=== PATIENT | female | born 1975 | race Caucasian/White ===

== ENCOUNTER 2016-10-26 10:59 | Emergency (ER) | payer OTHER ==
[2016-10-26] MEDS ORDERED: NS 1,000 ML IV ONE (11:33)
[2016-10-26] MEDS ORDERED: ZOFRAN IV ONE ×2 (11:34→14:19)
[2016-10-26] MEDS ORDERED: TORADOL IV ONE (11:34)
--- NOTE | 2016-10-26 11:39 | PROVIDER DOCUMENTATION ---
HPI-Abdominal Pain/GI Problem - General Chief Complaint: Flank Pain Stated Complaint: LEFT FLANK PAIN Time Seen by Provider: 10/26/16 11:19 Source: patient, family Allergies/Adverse Reactions: Patient Allergies Allergy/AdvReac Type Severity Reaction Status Date / Time No Known Allergies Allergy Verified 10/26/16 11:44 Home Medications: Alprazolam [Xanax] 1 tab PO BID PRN 10/26/16 Carvedilol [Coreg] 1 tab PO DAILY 10/26/16 Oxycodone HCl/Acetaminophen [Percocet 10-325 mg Tablet] 1 tab PO BID PRN Promethazine [Phenergan] 1 tab PO 2-4XDAY PRN PRN 10/26/16 - History of Present Illness-ABD Abdominal Pain Onset Location: reports: LUQ, LLQ, flank Pain Radiation: reports: no radiation Quality of Pain: reports: cramping, tightness Severity in ED: reports: moderate Onset/Duration: reports: 4-6 hours ago Timing: reports: still present, getting worse Activities at Onset: reports: none Exposure to sick contacts?: No Modifying Factors: improves with: nothing Associated Symptoms: reports: fatigue, nausea, vomiting Last BM: unsure Dark Stools Present?: reports: none noticed Rectal Bleeding: reports: none Rectal Pain: reports: none Emesis Description: reports: clear Bruising or Bleeding Gums?: No Similar Symptoms Previously?: Yes Recently seen or treated by another doctor?: No Review of Systems - Adult - REVIEW OF SYSTEMS - ADULT Constitutional: reports: no symptoms reported Eyes: reports: no symptoms reported Ears, Nose, Mouth & Throat: reports: no symptoms reported Cardiovascular: reports: no symptoms reported Respiratory: reports: no symptoms reported Gastrointestinal: reports: see HPI Genitourinary: reports: no symptoms reported Musculoskeletal: reports: no symptoms reported Integumentary: reports: no symptoms reported Neurological: reports: no symptoms reported Psychiatric: reports: no symptoms reported Endocrine: reports: no symptoms reported Hematologic/Lymphatic: reports: no symptoms reported Allergic/Immunologic: reports: no symptoms reported All Other Systems: Reviewed and Negative Past History - Adult - PAST MEDICAL HISTORY-ADULT Review of Records: reports: Old Records Reviewed, Nursing Assessment Review, Medications Reviewed, Social history reviewed & non-contributory. Major Childhood Illnesses: reports: denies history Cardiovascular: reports: denies history Respiratory: reports: denies history Gastrointestinal: reports: denies history Obstetrical/Gynecological: reports: denies history Genitourinary: reports: denies history Musculoskeletal: reports: denies history Neurological: reports: denies history Endocrine/Immune: reports: denies history Other Conditions: reports: denies history - FAMILY HISTORY Family History: reviewed, not pertinent Physical Exam-General - PHYSICAL EXAM-ADULT Initial Vital Signs Reviewed: Yes - CONSTITUTIONAL General Appearance: appears well, alert, moderate distress - EYES Eyes: PERRL/EOMI, pink conjunctivae - HEAD, EARS, NOSE, MOUTH & THROAT HENMT: normocephalic/atraumatic, moist mucous membranes, normal ENT inspection - NECK Neck: non-tender, full range of motion, normal inspection - RESPIRATORY Respiratory: chest non-tender, lungs clear, normal breath sounds - CARDIOVASCULAR Cardiovascular: normal peripheral pulses, regular rate, rhythm, no edema - GASTROINTESTINAL (ABDOMEN) Abdominal Exam: normal bowel sounds, soft, guarding (left CV Atenderness along with LUQ and LLQ tenderness), tenderness. negative: no organomegaly, abdominal bruit, hernia, mass, hepatomegaly, spleenomegaly, McBurney's point tenderness, Miller's sign, obturator sign - GENITOURINARY Female Genitalia/Pelvic Exam: deferred Rectal Exam: deferred - LYMPHATIC Lymphatic: no adenopathy - MUSCULOSKELETAL Back Exam: normal inspection, no CVA tenderness, no vertebral tenderness Extremity: normal range of motion, non-tender, normal gait - SKIN Integumentary: normal color, normal turgor, warm/dry - NEUROLOGIC Neurologic: grossly normal, no motor/sensory deficits - PSYCHIATRIC Psych/Mental Status: normal mood/affect, normal thought content, normal thought process, oriented x 3 Progress - PLAN OF CARE/RESULTS Progress/Plan/Lab Results: Laboratory Tests 10/26/16 10/26/16 10/26/16 11:35 11:35 11:35 WBC 4.81 RBC 4.12 L Hgb 12.1 Hct 37.9 MCV 92.0 MCH 29.4 MCHC 31.9 L RDW Std Deviation 12.2 Plt Count 210 MPV 10.5 H Immature Gran % (Auto) 0.0 Neut % (Auto) 59.6 Lymph % (Auto) 31.2 [place] % (Auto) 6.9 Eos % (Auto) 1.7 Baso % (Auto) 0.6 Immature Gran # (Auto) 0.00 Neut # (Auto) 2.87 Lymph # (Auto) 1.50 [place] # (Auto) 0.33 Eos # (Auto) 0.08 Baso # (Auto) 0.03 Sodium 139 Potassium 4.0 Chloride 100 Carbon Dioxide 29 Anion Gap 10 BUN 12 Creatinine 0.8 Estimated GFR/1.73 m2 > 60 BUN/Creatinine Ratio 15 Glucose 118 H Calculated Osmolality 278 Calcium 9.3 Total Bilirubin 0.37 AST 19 ALT 17 Alkaline Phosphatase 65 Total Protein 6.8 Albumin 4.5 Globulin 2.3 Albumin/Globulin Ratio 2.0 Amylase 32 Lipase 15 Urine Source CLEAN CATCH Urine Color YELLOW Urine Turbidity HAZY Urine pH 8.0 Ur Specific [place] 1.016 Urine Protein TRACE A Ur Glucose (Stick) NEGATIVE Ur Ketones (Stick) NEGATIVE Urine Blood LARGE A Urine Nitrite NEGATIVE Urine Bilirubin NEGATIVE Urobilinogen Dipstick NORMAL Urine Leukocytes NEGATIVE Urine WBC (Auto) <10 Urine RBC (Auto) TNTC A U Epithel Cells (Auto) <10 Urine Bacteria (Auto) NEGATIVE Orders Category Date Time Status ED: Urine Bedside ORDERED Care 10/26/16 11:35 Inactive Saline Loc DIRECTED Care 10/26/16 11:34 Active NPO Diet 10/26/16 11:[address] ABD/PELVIS W/ IV CONT ONLY [CT] Stat Exams 10/26/16 11:35 Draft AMYLASE [CHEM] Stat Lab 10/26/16 11:35 Completed CBC WITH ELECTRONIC DIFF [HEME] Stat Lab 10/26/16 11:35 Completed COMPREHENSIVE METABOLIC PANEL [CHEM] Stat Lab 10/26/16 11:35 Completed LIPASE [CHEM] Stat Lab 10/26/16 11:35 Completed URINALYSIS W/POSS RFLX CULT [URINALYSIS] Stat Lab 10/26/16 11:35 Completed 0.9% Sodium Chloride Inj [Ns] 1,000 ml Med 10/26/16 11:33 Discontinued IV 999 mls/hr Hydromorphone [Dilaudid] Med 10/26/16 12:42 Discontinued 1 mg IV NOW ONE Hydromorphone [Dilaudid] Med 10/26/16 14:19 Discontinued 1 mg IV NOW ONE Ketorolac [Toradol] Med 10/26/16 11:34 Discontinued 30 mg IV NOW ONE Ondansetron [Zofran] Med 10/26/16 11:34 Discontinued 4 mg IV NOW ONE Ondansetron [Zofran] Med 10/26/16 14:19 Discontinued 4 mg IV NOW ONE Vital Signs Temp Pulse Resp BP Pulse Ox 10/26/16 11:01 97.6 F 76 20 119/68 100 No Known Allergies Allergy (Verified 10/26/16 11:44) Alprazolam [Xanax] 1 tab PO BID PRN 10/26/16 Carvedilol [Coreg] 1 tab PO DAILY 10/26/16 Oxycodone HCl/Acetaminophen [Percocet 10-325 mg Tablet] 1 tab PO BID PRN Promethazine [Phenergan] 1 tab PO 2-4XDAY PRN PRN 10/26/16 Dietary Diet NPO Start MonOct 26 1134 Laboratory 10/26/16 10/26/16 10/26/16 11:35 11:35 11:35 WBC 4.81 RBC 4.12 L Hgb 12.1 Hct 37.9 MCV 92.0 MCH 29.4 MCHC 31.9 L RDW Std Deviation 12.2 Plt Count 210 MPV 10.5 H Immature Gran % (Auto) 0.0 Neut % (Auto) 59.6 Lymph % (Auto) 31.2 [place] % (Auto) 6.9 Eos % (Auto) 1.7 Baso % (Auto) 0.6 Immature Gran # (Auto) 0.00 Neut # (Auto) 2.87 Lymph # (Auto) 1.50 [place] # (Auto) 0.33 Eos # (Auto) 0.08 Baso # (Auto) 0.03 Sodium 139 Potassium 4.0 Chloride 100 Carbon Dioxide 29 Anion Gap 10 BUN 12 Creatinine 0.8 Estimated GFR/1.73 m2 > 60 BUN/Creatinine Ratio 15 Glucose 118 H Calculated Osmolality 278 Calcium 9.3 Total Bilirubin 0.37 AST 19 ALT 17 Alkaline Phosphatase 65 Total Protein 6.8 Albumin 4.5 Globulin 2.3 Albumin/Globulin Ratio 2.0 Amylase 32 Lipase 15 Urine Source CLEAN CATCH Urine Color YELLOW Urine Turbidity HAZY Urine pH 8.0 Ur Specific [place] 1.016 Urine Protein TRACE A Ur Glucose (Stick) NEGATIVE Ur Ketones (Stick) NEGATIVE Urine Blood LARGE A Urine Nitrite NEGATIVE Urine Bilirubin NEGATIVE Urobilinogen Dipstick NORMAL Urine Leukocytes NEGATIVE Urine WBC (Auto) <10 Urine RBC (Auto) TNTC A U Epithel Cells (Auto) <10 Urine Bacteria (Auto) NEGATIVE - CT/MRI 1 CT Study: Abdomen (left 6.5 mm distal ureter stone obstructing with mod hydronephrosis) Departure - Departure Time of Disposition Order: 14:51 DIAGNOSIS: Ureterolithiasis Disposition: ADMITTED INPATIENT 09 Certified Medical Emergency: Emergent Condition: Fair Referrals: Scottie Valero MD [Primary Care Provider] - Sukh Harmon MD [STAFF PHYSICIAN] - - Critical Care Note Comments: Called urology snuff container inspector Dr Harmon who recommended discharge and sent her to his office for further evalaution after 3 rounds of medications pt better with pain
[2016-10-26 11:51] LABS: MANUAL DIFF NEEDED? NO; URINE CULTURE NEEDED? NO; URINE MICRO REVIEW NEEDED? NO; URINE SOURCE CLEAN CATCH
[2016-10-26 11:54] LABS: BILIRUBIN URINE NEGATIVE (NEGATIVE); BLOOD URINE LARGE (NEGATIVE); COLOR YELLOW; GLUCOSE URINE NEGATIVE (NEGATIVE); LEUKOCYTES URINE NEGATIVE (NEGATIVE); NITRITE URINE NEGATIVE (NEGATIVE); PROTEIN URINE TRACE mg/dL (NEGATIVE); SP GRAVITY URINE 1.016; TURBIDITY URINE HAZY (CLEAR); UROBILINOGEN URINE NORMAL (NORMAL)
[2016-10-26 11:55] LABS: UR EPITHELIAL CELLS <10 /HPF (<10); URINE BACTERIA NEGATIVE /HPF; URINE RBC TNTC /HPF (<10); URINE WBC <10 /HPF (<10)
[2016-10-26 12:00] LABS: BASO% 0.6 % (0.0-0.8); EOS# 0.08 X1000 (0.0-0.7); EOS% 1.7 % (0.0-10.0); HEMATOCRIT 37.9 % (37.0-47.0); HEMOGLOBIN 12.1 g/dL (12.0-16.0); LYMPH% 31.2 % (20.5-51.1); MCH 29.4 PG (27-31); MCHC 31.9 g/dL (33-37); MONO# 0.33 X1000 (0.11-0.59); MONO% 6.9 % (1.7-9.3); MPV 10.5 FL (7.4-10.4); NEUT% 59.6 % (42.2-75.2); PLT 210 X1000 (130-400); RBC 4.12 XMIL (4.2-5.4)
[2016-10-26 12:29] LABS: AGAP 10; ALBUMIN 4.5 g/dL (3.5-5.0); ALKALINE PHOSPHATASE 65 U/L (32-104); AMYLASE 32 U/L (20-200); BUN 12 mg/dL (8-22); CALCIUM 9.3 mg/dL (8.8-10.2); CHLORIDE 100 mmol/L (98-107); COSMO 278; GOT 19 U/L (10-30); GPT 17 U/L (10-36); LIPASE 15 U/L (13-60); SODIUM 139 mmol/L (136-145); TCO2 29 mmol/L (25-35); TOTAL BILIRUBIN 0.37 mg/dL (0.20-1.00); TOTAL PROTEIN 6.8 g/dL (6.3-8.3)
[2016-10-26] MEDS ORDERED: DILAUDID IV ONE ×2 (12:42→14:19)
--- NOTE | 2016-10-26 13:59 | Diag Imaging Result Document ---
PROCEDURE NAME: CT ABD/PELVIS W/ IV CONT ONLY - 10/26/2016 CT ABDOMEN AND PELVIS WITH IV CONTRAST: COMPARISON: 10/19/2012. FINDINGS: There is a 6.5 mm obstructing stone in the distal left ureter a couple centimeters proximal to the left UVJ. There is associated mild to moderate left hydroureteronephrosis. The right kidney is unremarkable. The gallbladder is unremarkable. The urinary bladder is only partially distended and is grossly unremarkable otherwise. No definite adnexal mass is appreciated. There is no evidence of bowel obstruction. The remainder of the solid viscera of the abdomen and pelvis and the remainder of the GI tract is essentially unremarkable. IMPRESSION: 6.5 mm obstructing stone in the distal left ureter with associated mild to moderate left hydroureteronephrosis as described.
[2016-10-26 15:28] VITALS: BP 120/71
== END 2016-10-26 15:27 | disposition home or self-care (01) ==
LOC: ED 10:59
DX: N20.1 Calculus of ureter (principal); R10.32 Left lower quadrant pain; R10.12 Left upper quadrant pain; R53.83 Other fatigue; R11.2 Nausea with vomiting, unspecified; R33.9 Retention of urine, unspecified
CPT/HCPCS: 74177; 80053; 81001; 82150; 83690; 85025; 96374; 96375; 96376; J1170; J1885; J2405; J7030; Q9967

== ENCOUNTER 2016-10-26 17:40 | Day surgery (SDC) ==
[2016-10-26] MEDS ORDERED: LR 1,000 ML ONE (17:56)
[2016-10-26] MEDS ORDERED: KEFZOL 1 GM/D5W 50 ML ONE (18:11)
[2016-10-26] MEDS ORDERED: FENTANYL ONE (19:23)
[2016-10-26] MEDS ORDERED: DIPRIVAN 1% ONE (19:23)
[2016-10-26] MEDS ORDERED: MORPHINE ONE (19:35)
[2016-10-26] MEDS ORDERED: PERCOCET-5 ONE (19:36)
[2016-10-26 20:12] VITALS: BP 117/60
--- NOTE | 2016-10-26 22:53 | OPERATIVE NOTE ---
PROCEDURE DATE: 10/26/2016 SURGEON: Sukh Harmon MD PREOPERATIVE DIAGNOSIS: 1. Left distal ureteral stone. 2. Hydronephrosis. 3. Flank pain. PRIMARY PROCEDURES: 1. Cystoscopy, left ureteroscopy. 2. Laser lithotripsy, stone basket extraction. 3. Placement of a 6-Slovenian-24 cm ureteral stent. INDICATIONS: 41-year-old female without previous history of urolithiasis who presented with severe left flank pain. ER obtained a CT scan which showed 6.5 mm stone with significant hydronephrosis. She had several rounds of IV pain medications and had her pain partially controlled. She presented to clinic with worsening pain from the emergency room. Decision was made to take her to surgery. FINDINGS: Obstructing distal ureteral stone, significant mucosal edema, significant hydroureteronephrosis. The stone was sent off for analysis. Adequate stent placement. PROCEDURE IN DETAIL: After obtaining informed consent, patient brought to the operative room. Perioperative antibiotics and laryngeal mask anesthesia were administered. She was placed in dorsal lithotomy position, prepped and draped in sterile fashion. A 21-Slovenian rigid cystoscope was used to gain access to the bladder, which was then examined in systematic fashion. She had no evidence of mucosal lesions, excessive trabeculations, or diverticula noted. We turned attention to the left ureteral orifice which was cannulated with a PTFE wire. It was advanced all the way to renal pelvis. Rigid ureteroscope was advanced alongside of the wire. The stone was visible. There was significant mucosal edema. I advanced the stone further into the mid ureter. A 0 nitinol basket was used to secure the stone. Holmium laser fiber of 365 micron size with energy settings of 0.8 joules and 8 hertz was used to break the stone into small fragments. Those were then extracted. We subsequently sent off 1 of the fragments for analysis. Repeat ureteroscopy revealed no evidence of residual stone fragments. We elected to place ureteral stent given the significant mucosal edema and hydronephrosis. In the standard fashion a 6-Slovenian, 24 cm ureteral stent was placed over the wire via the cystoscope with the proximal coil position confirmed fluoroscopically. The distal coil directly visualized. The string was left attached to the stent. The bladder was emptied, cystoscope was removed, she was extubated and taken to PACU for the recovery. ESTIMATED BLOOD LOSS: None. COMPLICATIONS: None. DISPOSITION: To PACU and subsequently home with prescriptions for [place] 10 (20), Cipro 250 (10). She was instructed to remove her stent by pulling on the string in 4 days. She will follow up with me in 4 weeks.
[2016-10-27] MEDS ORDERED: DECADRON ONE (08:11)
[2016-10-27] MEDS ORDERED: XYLOCAINE-MPF 2% ONE (08:11)
--- NOTE | 2016-10-27 08:26 | Diag Imaging Result Document ---
PROCEDURE NAME: FLUROSCOPY CYSTO - 10/26/2016 RETROGRADE PYELOGRAM (4 IMAGES): FINDINGS: There is placement of a left ureteral stent by Dr. Harmon. No contrast was administered in the ureter. IMPRESSION: Left stent placement.
== END 2016-10-26 21:05 | disposition home or self-care (01) ==
LOC: OPS 17:40 → DIRADM 17:40 → UNDOADMOB 17:40 → DIRADM 18:48 → 4N 18:48 → UNDODISOB 21:05 → OPS 21:05 → EDSTATUS 10-28 08:54
PROVIDERS: ATTEND Urology
DX: N13.2 Hydronephrosis with renal and ureteral calculous obstruction (principal); R10.9 Unspecified abdominal pain; I34.1 Nonrheumatic mitral (valve) prolapse; F41.9 Anxiety disorder, unspecified; F17.210 Nicotine dependence, cigarettes, uncomplicated; M06.9 Rheumatoid arthritis, unspecified; Z79.899 Other long term (current) drug therapy; Z79.890 Hormone replacement therapy; N20.1 Calculus of ureter; R10.32 Left lower quadrant pain; R10.31 Right lower quadrant pain; R53.83 Other fatigue; R11.2 Nausea with vomiting, unspecified; R33.9 Retention of urine, unspecified
CPT/HCPCS: 74177; 76000; 80053; 81001; 82150; 82360; 83690; 85025; 88300; 96374; 96375; 96376; C2617; J0690; J1100; J1170; J1885; J2270; J2405; J3010; J7030; J7120; Q9967